=== PATIENT | male | born 1945 | race Caucasian/White ===

== ENCOUNTER → 2016-10-01 | Outpatient (CLI) | payer MEDICARE ==
[2016-10-01 14:24] LABS: Hemoglobin A1C 7.7 % (4.2-6.1)
== END | disposition home or self-care (01) ==
LOC: LABWHC1 07:15
PROVIDERS: ATTEND Family Medicine
DX: R73.9 Hyperglycemia, unspecified (principal)
CPT/HCPCS: 36415; 83036

== ENCOUNTER → 2018-04-23 | Outpatient (CLI) | payer MEDICARE ==
[2018-04-23 11:19] LABS: Basophils % (A) 1 %; Eosinophils # (A) 0.1 k/uL (0-0.7); Eosinophils % (A) 4 %; HCT 45.5 % (39.0-53.0); Lymphocytes # (A) 1.1 k/uL (1.0-4.8); Lymphocytes % (A) 30 %; MCH 30.1 pg (25.0-35.0); MCHC 32.9 g/dL (31.0-37.0); MCV 91.4 fL (80.0-100.0); Mean Platelet Volume 8.6; Monocytes # (A) 0.3 k/uL (0-1.0); Monocytes % (A) 9 %; Neutrophils % (A) 54 %; Platelet Count 129 k/uL (150-450); RBC 4.98 m/uL (4.30-5.90); WBC 3.7 k/uL (3.8-10.6)
[2018-04-23 17:32] LABS: Albumin 4.5 g/dL (3.80-4.90); Albumin/Globulin Ratio 1.96 (1.20-2.10); Anion Gap 8.8 mmol/L (4.00-12.00); Calcium 9.2 mg/dL (8.7-10.3); Carbon Dioxide 28.2 mmol/L (21.6-31.8); Globulin 2.3 g/dL (1.6-3.3); Magnesium 1.9 mg/dL (1.5-2.4); Potassium 4.2 mmol/L (3.5-5.5); Total Bilirubin 0.5 mg/dL (0.3-1.2); Total Protein 6.8 g/dL (6.2-8.2); Uric Acid 4.5 mg/dL (3.7-8.7)
[2018-04-23 18:18] LABS: Hemoglobin A1C 6.6 % (4.0-6.0)
== END ==
LOC: LABWHC1 10:36
PROVIDERS: ATTEND Family Medicine
DX: M19.90 Unspecified osteoarthritis, unspecified site (principal); E11.9 Type 2 diabetes mellitus without complications; R25.2 Cramp and spasm
CPT/HCPCS: 36415; 80053; 83036; 83735; 84550; 85025; 85379

== ENCOUNTER → 2019-02-08 | Outpatient (CLI) | payer MEDICARE ==
--- NOTE | 2019-02-08 09:32 | CTL ---
EXAMINATION TYPE: CT Low Dose Lung DATE OF EXAM ORDERED: 02/08/2019 HISTORY: 73-year-old male Tobacco use and nicotine dependency. Lung cancer screening CT DLP: 137.[address] CTDI: 3.7 mGy Automated exposure control for dose reduction was used. SCREENING VISIT: Baseline COMPARISON: None TECHNIQUE: Low dose computed tomography scan was performed through the chest at 1 mm thick sections and reconstructed images in the coronal and sagittal plane. Additional coronal MIP reconstruction performed. CT DIAGNOSTIC QUALITY: Satisfactory FINDINGS: Heart normal size with trace pericardial thickening/fluid. Scattered coronary vessel calcifications are present. Aorta normal caliber with mild episodic arch calcifications and conventional arch vessel branching anatomy. Borderline to mildly enlarged caliber to the main right and left pulmonary arteries at 2.6 and 2.5 cm, respectively, suggesting underlying pulmonary arterial hypertension. No thoracic lymphadenopathy by CT size criteria. There is a 1.0 x 0.7 cm soft tissue nodule within the subcutaneous adipose of the anterior right mid chest that will need to be correlated clinically. Correlation should be made with physical exam findings and possible targeted ultrasound. Mild diffuse bronchial wall thickening. Mild centrilobular emphysema in the upper lungs. No pleural effusion. 4 mm peripheral left upper lobe pulmonary nodule, axial image 60. A 4 mm thick pleural plaque along the lateral left chest of uncertain clinical significance. This can be reassessed on follow-up. 4 mm groundglass pulmonary nodule at the left base, axial image 226.. Patchy opacity left base along the hemidiaphragm. Small groundglass focus medial right lower lobe, axial image 197 likely infectious/inflammatory focus. Visualized upper abdomen shows no gross abnormality. Bones: Endplate spondylosis lower thoracic spine and scattered degenerative disc disease upper thoracic spine. IMPRESSION: 1. BI-RADS 3, probably benign - 4 mm pleural thickening along the lateral left mid chest questionable clinical significance. Short interval follow-up recommended to reassess. Otherwise, a couple 4 mm pulmonary nodules are considered benign at baseline screening. 2. Patchy left basilar atelectasis versus infiltrate. Correlate for any infectious signs/symptoms. 3. COPD with mild emphysema. 4. Possible underlying pulmonary arterial hypertension. 5. A 1 cm soft tissue nodule within the subcutaneous fat of the anterior right mid chest. RECOMMENDATION: 1. Six-month follow-up low-dose CT chest. 2. Correlate with physical exam findings regarding the 1 cm subcutaneous nodule anterior right mid chest. The finding can be followed clinically. If any growth is noted, targeted ultrasound could be performed. 3. Correlate to exclude pneumonia. 4. Smoking cessation. FOLLOW UP CT CHEST RECOMMENDATION: [address] LUNG RAD: Lung-Rad 3 Probably Benign MTDD
== END ==
LOC: RADCTMAIN 07:21
PROVIDERS: ATTEND Internal Medicine Critical Care Medicine
DX: J43.9 Emphysema, unspecified (principal); R91.8 Other nonspecific abnormal finding of lung field; Z87.891 Personal history of nicotine dependence

== ENCOUNTER → 2019-04-11 | Outpatient (CLI) | payer MEDICARE ==
[2019-04-11 12:00] LABS: Follicle Stimulating Hormone 12.6 mIU/mL; Luteinizing Hormone 3.8 mIU/mL
== END | disposition home or self-care (01) ==
LOC: LABWHC1 07:29
PROVIDERS: ATTEND Urology
DX: E29.1 Testicular hypofunction (principal)
CPT/HCPCS: 36415; 83001; 83002; 84153; 84403

== ENCOUNTER → 2021-02-15 | Outpatient (CLI) | payer MEDICARE ==
--- NOTE | 2021-02-15 11:42 | ECHOF ---
Referral Reason:R07.9 chest pain MEASUREMENTS -------- HEIGHT: 182.9 cm WEIGHT: 105.7 kg BP: RVIDd: 3.4 cm (< 3.3) IVSd: 1.3 cm (0.6 - 1.1) LVIDd: 5.3 cm (3.9 - 5.3) LVPWd: 1.3 cm (0.6 - 1.1) IVSs: 1.9 cm LVIDs: 2.9 cm LVPWs: 1.8 cm LA Diam: 3.9 cm (2.7 - 3.8) LAESV Index (A-L): 25.19 ml/m Ao Diam: 3.5 cm (2.0 - 3.7) AV Cusp: 2.0 cm (1.5 - 2.6) MV EXCURSION: 11.800 mm (> 18.000) MV EF SLOPE: 53 mm/s (70 - 150) EPSS: 0.7 cm MV E Oracio: 0.86 m/s MV DecT: 257 ms MV A Oracio: 1.16 m/s MV E/A Ratio: 0.74 FINDINGS -------- Sinus rhythm. This was a technically adequate study. The left ventricular size is normal. There is mild concentric left ventricular hypertrophy. Overa ll left ventricular systolic function is normal with, an EF between 60 - 65 %. The right ventricle is mildly enlarged. Normal LA size by volume 22+/-6 ml/m2. The right atrium is normal in size. Interatrial and interventricular septum intact. The aortic valve is trileaflet, and appears structurally normal. No aortic stenosis or regurgitation. There is trace mitral regurgitation. The tricuspid valve appears structurally normal. There is no pulmonic regurgitation present. The aortic root size is normal. Normal inferior vena cava with normal inspiratory collapse consistent with estimated right atrial pre ssure of 5 mmHg. There is no pericardial effusion. CONCLUSIONS -------- 1. The left ventricular size is normal. 2. There is mild concentric left ventricular hypertrophy. 3. Overall left ventricular systolic function is normal with, an EF between 60 - 65 %. 4. The right ventricle is mildly enlarged. 5. The aortic valve is trileaflet, and appears structurally normal. No aortic stenosis or regurgitati on. 6. There is trace mitral regurgitation. 7. There is no pericardial effusion. SNUFF BLENDER: Yesy Gibson RDCS
--- NOTE | 2021-02-15 13:18 | P.STRESS ---
- Stress Test Note Stress Test Results/Findings: Exam Performed: stress test Exam Date: 02/15/21 Reason for Exam: CP Height: 6 ft Weight: 104.326 kg Protocol: ETT Stage: 2 Duration of Exercise: 4:35 Resting Heart Rate: 93 Resting Blood Pressure: 135/70 Maximum Achieved Heart Rate: 134 Maximum Achieved Blood Pressure: 198/111 85% PMHR: 125 100% PMHR: 147 METS: 7.1 Technologist Comment: Stress Test Results/Findings: Patient underwent exercise stress EKG with a Usama protocol treadmill stress test. Patient exercised into Stage 2 for a total of 4 minutes and 35 seconds reaching a total of 7.1 METS. Patient's maximum heart rate was 132 which represented 91 % age-predicted maximum heart rate. No symptoms of chest pain or pressure. Stress EKG findings: At baseline patient's EKG showed normal sinus rhythm, left axis deviation, no significant ST or T wave abnormalities. At peak exercise, EKG showed abnormal 1.[address] depressions in the inferior lateral leads with minimal aVR ST elevation. This returned back to baseline after approximately 6 minutes. Conclusions: 1. Abnormal EKG response to exercise with [address] depressions in the inferior and lateral leads concerning for ischemia. May consider stress testing with imaging if clinically indicated. 2. Poor exercise capacity.
== END | disposition home or self-care (01) ==
LOC: RADNMMAIN 09:46
PROVIDERS: ATTEND Family Medicine
DX: R07.9 Chest pain, unspecified (principal)
CPT/HCPCS: 93017; 93306

== ENCOUNTER → 2021-03-04 | Outpatient (CLI) | payer MEDICARE ==
[2021-03-04 23:35] LABS: HCT 41.1 % (39.6-50.0); HGB 13.2 g/dL (13.0-17.0); MCH 28.1 pg (27.0-32.0); MCHC 32.1 g/dL (32.0-37.0); MCV 87.6 fL (80.0-97.0); Mean Platelet Volume 11.9 fL (9.5-12.2); Platelet Count 204 X 10*3/uL (140-440); RBC 4.69 X 10*6/uL (4.40-5.60); RDW 14.2 % (11.5-14.5); WBC 9.72 X 10*3/uL (4.50-10.00)
[2021-03-05 01:16] LABS: African American GFR (CKD) 101.6 (60.0-200.0); Anion Gap 11.4 mmol/L (10.00-18.00); Blood Urea Nitrogen 23.9 mg/dL (9.0-27.0); Carbon Dioxide 26.8 mmol/L (20.0-27.5); Non-African American GFR(CKD) 87.7 (60.0-200.0); Potassium 4.1 mmol/L (3.5-5.5)
== END | disposition home or self-care (01) ==
LOC: LABWHC1 14:51
PROVIDERS: ATTEND Internal Medicine Interventional Cardiology
DX: Z01.812 Encounter for preprocedural laboratory examination (principal); R94.39 Abnormal result of other cardiovascular function study
CPT/HCPCS: 36415; 80051; 82565; 84520; 85027

== ENCOUNTER 2021-03-08 08:47 | Day surgery (SDC) | payer MEDICARE ==
[2021-03-04 16:21] VITALS: BMI 31.3
--- NOTE | 2021-03-05 17:51 | HP ---
HISTORY AND PHYSICAL This is a 75-year-old gentleman with a history of type 2 diabetes, obstructive sleep apnea who uses CPAP, bronchial asthma, previous history of smoking and also hyperlipidemia. He has been having exertional chest pressure and recently had a stress test at [facility] and the stress test was a regular stress test. He walked for only 4 minutes and 35 seconds, had knee discomfort but developed chest pressure, according to the patient. He described this as a pressure across the chest with radiation to the neck. However, on the stress test report there was concern that there were ischemic changes, but it is documented that he did not have symptoms of angina, but patient insists he had chest pressure. Since the stress test, even with mild activity going up a flight of stairs, he is having pressure in the chest suggestive of angina. The patient's cardiac cath which was scheduled for March 08, was initially denied by the insurance company. I spoke to the insurance physician, Dr. Padilla, and explained to him his symptoms as described above, and he immediately authorized the cardiac catheterization. Patient's resting heart rate is in the 60s. He is already on aspirin and Crestor. I will continue the beta rickey, metoprolol tartrate 25 mg daily in addition to aspirin and Crestor and will proceed with cardiac catheterization on Monday. The rationale, risks and benefits related to cardiac cath were carefully explained to the patient. He understands all details and wishes to proceed with the procedure. PAST MEDICAL HISTORY: 1. Type 2 diabetes. 2. Hypertension. 3. Hypercholesterolemia. 4. Type 2 diabetes mellitus. PHYSICAL EXAMINATION: On examination, blood pressure is 140/60, pulse rate is 70 per minute. HEENT unremarkable. Fundus was not examined by me. Neck is supple. There is no JVD. I do not hear a carotid bruit. There is no thyromegaly. Heart exam reveals S1, S2 heard normally. No significant murmurs. Lungs are clear. Abdomen is soft, non-tender. Lower extremities reveal diminished pulses. No edema. Central nervous system is normal. IMPRESSION: 1. Abnormal stress test with symptoms suggestive of angina. 2. Type 2 diabetes mellitus. 3. Hyperlipidemia. 4. Obstructive sleep apnea, wears CPAP. 5. Hypercholesterolemia. 6. Benign hypertension. RECOMMENDATIONS: Coronary angiography; based on findings, intervention. Discussed with the patient at length. He understands all details and wishes to proceed with the procedure. MMODL / IJN: [id number] /
[~2021-03-08 08:47] MED LIST: ALPRAZolam 0.25 MG TAB PO PRN; ALPRAZolam 0.5 MG TAB PO PRN; ASPIRIN 325 MG TAB PO STA; ATORVASTATIN 80 MG TAB PO STA; HEPARIN SODIUM,PORCINE 10,000 UNIT in SODIUM CHLORIDE 0.9% 1,000 ML IRRIGATION PRN; HEPARIN SODIUM,PORCINE 2,500 UNIT in SODIUM CHLORIDE 0.9% 250 ML IRRIGATION PRN; NITROGLYCERIN SL TABS 0.4 MG TAB SUBLINGUAL PRN
[2021-03-08] MEDS: SODIUM CHLORIDE 0.9% 1,000 ML in EMPTY BAG 1 BAG IV SCH ×2 (09:30→15:00)
[2021-03-08 09:36] LABS: Glucose,Whole Blood 172 mg/dL (75-99)
[2021-03-08] MEDS ORDERED: HEPARIN SODIUM 1,000 UN/ML (10ML VL) ONE (10:37)
[2021-03-08] MEDS ORDERED: LIDOCAINE 1% INJ 10MG/ML (20 ML MDV) ONE (10:38)
[2021-03-08] MEDS ORDERED: VERAPAMIL 2.5 MG/ML 2 ML AMP ONE (10:38)
[2021-03-08] MEDS: MIDAZOLAM 2 MG/2 ML VIAL IVP ONE ×2 (10:50→10:57)
[2021-03-08] MEDS ORDERED: LIDOCAINE 1% INJ 10MG/ML (20 ML MDV) SQ ONE (10:57)
[2021-03-08] MEDS: VERAPAMIL SYRINGE (5 MG/10 ML) INTRAARTER ONE ×2 (11:00→12:03)
[2021-03-08] MEDS: HEPARIN SODIUM 1,000 UN/ML (10ML VL) IV ONE ×3 (11:02→11:52)
[2021-03-08] MEDS ORDERED: TIROFIBAN BOLUS 12.5MG/250 ML BAG IV ONE (11:17)
[2021-03-08] MEDS ORDERED: TIROFIBAN 12.5MG-250ML NS 250 ML IV ONE (11:20)
[2021-03-08] MEDS ORDERED: IOPAMIDOL-370 100ML BTL INJ ONE (11:33)
[2021-03-08] MEDS: NITROGLYCERIN 1000MCG/10ML SYRINGE INTRACORON ONE ×2 (11:45→11:59)
[2021-03-08] MEDS ORDERED: TICAGRELOR 90 MG TAB ONE (11:55)
[2021-03-08] MEDS ORDERED: TICAGRELOR 90 MG TAB PO ONE (11:55)
[2021-03-08] MEDS ORDERED: IOPAMIDOL-370 125ML BTL INJ ONE (12:03)
[2021-03-08] MEDS ORDERED: ZOLPIDEM 5 MG TAB PO PRN (12:08)
[2021-03-08] MEDS ORDERED: ATROPINE SULFATE 0.1 MG/ML 10ML SYRINGE IV PRN (12:08)
[2021-03-08] MEDS ORDERED: RX INFO: IV CONTRAST WAS GIVEN 1 EACH MISC MISCELLANE PRN (12:08)
[2021-03-08] MEDS ORDERED: MAG HYDROX/AL HYDROX/SIMETH 30 ML CUP PO PRN (12:08)
[2021-03-08] MEDS ORDERED: TIROFIBAN 12.5MG-250ML NS 250 ML IV SCH (13:00)
[2021-03-08] MEDS: ALBUTEROL NEBULIZED 2.5 MG/3 ML INHALATION SCH ×2 (13:22→20:30)
[2021-03-08] MEDS: SODIUM CHLORIDE 0.9% 1,000 ML IV SCH (14:03)
--- NOTE | 2021-03-08 14:45 | CC ---
CARDIAC CATHETERIZATION REPORT DATE OF SERVICE: 03/08/2021. PROCEDURE: 1. Left heart catheterization and coronary angiography. 2. PTCA and stenting of a long heavily calcified proximal and mid circumflex coronary artery with 2 drug-eluting stents. 3. PTCA and stenting of a heavily calcified mid/proximal RCA with a drug-eluting stent. PERFORMED BY: Dr. Deng Hoang. Moderate conscious sedation time was 71 minutes. Patient was administered Versed. Oxygen saturation, hemodynamics and EKG were monitored closely. CLINICAL INFORMATION: Mr. Kenan Tejada is a 75-year-old gentleman with a history of type 2 diabetes, hypertension, hypercholesterolemia and recent symptoms of exertional chest pressure and shortness of breath with a positive stress test by EKG criteria, and therefore he was advised cardiac cath after due discussion with the insurance company which had initially denied his cardiac cath. Risks, benefits, options, rationale were explained and patient was brought in for the procedure electively. PROCEDURE NOTE: Under local anesthesia and strict aseptic precautions, a 6-Palauan sheath was placed in the right radial artery. Using a JL3.5 and JR4 catheters, I performed coronary angiography and using the same right catheter, I checked LV pressures but did not perform an LV-gram. I noted that he had a significant lesion in the proximal and mid circumflex as well as proximal and mid RCA, heavily calcified vessels and proceeded to perform intervention in the same setting. Following the intervention, the sheath was taken out and TR band applied as per protocol with saturation in the fingers of the right hand of more than 94%. Patient tolerated procedure well without complications. The patient received a total of 6500 units of heparin in the geophysical laboratory chief and also Aggrastat bolus and drip was given. ACT was 242. CARDIAC CATHETERIZATION FINDINGS: RIGHT CORONARY ARTERY: A very dominant vessel, has a heavy calcification the proximal portion with a 40% lesion. At the junction of proximal and middle one third, there is an eccentric 80 and 90% lesion after which the caliber improves and distally bifurcates into a large PDA and PLV, both of which supply a sizable amount of myocardium. The RCA therefore has a 90% proximal/mid lesion in a heavily calcified segment and this is a super dominant vessel. LEFT MAIN CIRCUMFLEX CORONARY ARTERY: Short, patent disease-free vessel that bifurcates into LAD and circumflex. LEFT ANTERIOR DESCENDING CORONARY ARTERY: Good caliber vessel extends along the anterior wall, gives off septal and diagonal branches and the distal one third gives off a large diagonal branch of a 2.25 caliber and then the vessel has diffuse disease towards the apex of about 70%. LAD therefore has diffuse distal disease but the proximal and mid segments are patent. Diagonal branch is free of significant disease. LEFT POSTERIOR CIRCUMFLEX CORONARY ARTERY: Nondominant vessel, heavily calcified from the proximal portion. There was heavy calcification and a 95% stenosis that actually extends into the first obtuse marginal of about 99%. Obtuse marginal is large caliber. Mid circumflex is diffusely diseased and continuation of circumflex distally has mild diffuse disease. Circumflex therefore has a long 95% stenosis with heavy calcification. This is a nondominant vessel. LV-gram was not performed. The left ventricular end-diastolic pressure was 8-9 mmHg without any gradient across aortic valve. RECOMMENDATIONS: I recommended PCI of circumflex and RCA performed in the same setting. PCI PROCEDURE DETAILS: I used a JL3.5 guide catheter to cannulate the left coronary artery. A run- through wire was used to cross the LCX lesion and kept in the distal circumflex. I pre- dilated with a 2.5 caliber NC Trek balloon without much improvement. I then used a 3.0 NC Trek balloon and gave multiple inflations. There was significant recoil and there was a small dissection in the proximal portion of the lesion. I then deployed a 3.25 caliber 23 mm long Xience stent in the distal portions and a 15 mm long 3.25 caliber in the proximal portion. Excellent angiographic result was achieved without complication. There was a remarkable improvement in angiographic appearance and flow. The patient then tolerated procedure well. I then turned my attention to the RCA. The left guide was taken out and the standard right guide was used for the right coronary artery. The same run-through wire was used. A 3.5 caliber NC Trek balloon of 12 mm length was used to pre-dilate the lesion. I then deployed a 4.0 caliber 12 mm Xience stent at 14 atmospheres. Patient had mild chest discomfort and very subtle inferior ST elevation. Excellent angiographic result was achieved without complication. The sheath was taken out and TR band applied as per protocol and saturation the fingers of the right hand was done more than 94%. Excellent angiographic result was achieved. Results were discussed with the patient and family MMODL / IJN: [id number] / MATILDE
[2021-03-08 18:18] LABS: Glucose,Whole Blood 377 mg/dL (75-99)
[2021-03-08] MEDS: glipiZIDE 5 MG TAB PO SCH (19:07)
[2021-03-08] MEDS: TICAGRELOR 90 MG TAB PO SCH (19:07)
[2021-03-08 19:46] VITALS: RESP 16
[2021-03-08 20:19] LABS: Glucose,Whole Blood 284 mg/dL (75-99)
[2021-03-08] MEDS: INSULIN ASPART (NovoLOG) 100 UNIT/ML VIAL SQ SCH (20:30)
[2021-03-08] MEDS ORDERED: ATORVASTATIN 80 MG TAB PO SCH (21:00)
[2021-03-08] MEDS ORDERED: METOPROLOL TARTRATE 25 MG TAB PO SCH (21:00)
[2021-03-09 01:18] LABS: Glucose,Whole Blood 166 mg/dL (75-99)
[2021-03-09] MEDS: SODIUM CHLORIDE 0.9% 1,000 ML in EMPTY BAG 1 BAG IV SCH ×2 (01:19→07:29)
[2021-03-09] MEDS: SODIUM CHLORIDE 0.9% 1,000 ML IV SCH (01:21)
[2021-03-09 06:07] LABS: Basophils % (A) 1 %; Eosinophils # (A) 0.2 k/uL (0-0.7); Eosinophils % (A) 2 %; HCT 41.2 % (39.0-53.0); HGB 13.6 gm/dL (13.0-17.5); Lymphocytes # (A) 1.5 k/uL (1.0-4.8); Lymphocytes % (A) 22 %; MCH 28.4 pg (25.0-35.0); MCV 86.1 fL (80.0-100.0); Mean Platelet Volume 9.1; Monocytes # (A) 0.6 k/uL (0-1.0); Monocytes % (A) 9 %; Neutrophils # (A) 4.4 k/uL (1.3-7.7); Neutrophils % (A) 65 %; Platelet Count 147 k/uL (150-450); RBC 4.78 m/uL (4.30-5.90); RDW 14.1 % (11.5-15.5); WBC 6.8 k/uL (3.8-10.6)
[2021-03-09 06:28] LABS: African American GFR (CKD) >90 (>60 ml/min/1.73 sqM); Anion Gap 3 mmol/L; Blood Urea Nitrogen 15 mg/dL (9-20); Calcium 8.7 mg/dL (8.4-10.2); Carbon Dioxide 31 mmol/L (22-30); Chloride 103 mmol/L (98-107); Glucose 163 mg/dL (74-99); Non-African American GFR(CKD) >90 (>60 ml/min/1.73 sqM); Potassium 4.2 mmol/L (3.5-5.1); Sodium 137 mmol/L (137-145)
[2021-03-09 07:38] LABS: Glucose,Whole Blood 178 mg/dL (75-99)
[2021-03-09] MEDS: ALBUTEROL NEBULIZED 2.5 MG/3 ML INHALATION SCH (08:02)
[2021-03-09 08:30] VITALS: BP 122/59; PULSE 62; TEMP 97.7
[2021-03-09] MEDS ORDERED: ASPIRIN 81 MG PO SCH (09:00)
[2021-03-09] MEDS ORDERED: TAMSULOSIN 0.4 MG CAP.ER.24H PO SCH (09:00)
[2021-03-09] MEDS ORDERED: LOSARTAN 50 MG TAB PO SCH (09:00)
[2021-03-09] MEDS ORDERED: predniSONE 10 MG TAB PO SCH (09:00)
[2021-03-09] MEDS: INSULIN ASPART (NovoLOG) 100 UNIT/ML VIAL SQ SCH (09:02)
[2021-03-09] MEDS: glipiZIDE 5 MG TAB PO SCH (09:08)
[2021-03-09] MEDS: TICAGRELOR 90 MG TAB PO SCH (09:08)
[2021-03-09] MEDS ORDERED: METOPROLOL TARTRATE 25 MG TAB PO SCH (09:15)
--- NOTE | 2021-03-09 11:08 | DS ---
DISCHARGE SUMMARY DATE OF ADMISSION: 03/08/2021. DATE OF DISCHARGE: 03/09/2021 DIAGNOSES: 1. Unstable angina. 2. Hypertension. 3. Type 2 diabetes. 4. Hyperlipidemia. PROCEDURES PERFORMED: 1. Left heart catheterization and coronary angiography. 2. PTCA and stenting of the mid and proximal circumflex. 3. PTCA and stenting of proximal and mid dominant RCA. Drug-eluting stents were used. Mr. Tejada was brought to the hospital electively with an abnormal stress test and symptoms suggestive of angina with a strong risk factor profile. Cardiac cath from right radial approach revealed a 95% stenosis involving the proximal and mid circumflex, which was a long lesion extending into the obtuse marginal and also he had a significant lesion in the mid/proximal RCA which was a superdominant vessel. Both these lesions were stented with drug-eluting stents. Excellent angiographic was achieved. The patient's postprocedure course was uneventful. He will be discharged today and I will see him in the office on March 17 in the morning. Discharge instructions regarding activity, diet and medications were given. Vital signs are stable. No JVD. S1-S2 heard normally. Heart sounds are distant. No significant murmurs. Lungs are clear. Abdomen is soft, nontender. Lower extremity revealed normal pulses. Right radial cath site is clean and dry with a good pulse. EKG and labs were reviewed and are unremarkable. Discharge instructions were given and patient will be seen next week. MMDARIELL / DAHLIA: [id number] /
== END 2021-03-09 09:48 | disposition home or self-care (01) ==
LOC: CATHCVL 08:47 → 6NMEDSUR 12:03 → CATHCVL 03-09 09:48
PROVIDERS: ATTEND Internal Medicine Interventional Cardiology
DX: R94.39 Abnormal result of other cardiovascular function study (principal); I25.10 Atherosclerotic heart disease of native coronary artery without angina pectoris; I25.84 Coronary atherosclerosis due to calcified coronary lesion; E11.9 Type 2 diabetes mellitus without complications; E78.00 Pure hypercholesterolemia, unspecified; I10 Essential (primary) hypertension; G47.33 Obstructive sleep apnea (adult) (pediatric); J45.909 Unspecified asthma, uncomplicated; Z87.891 Personal history of nicotine dependence; Z79.82 Long term (current) use of aspirin; Z79.899 Other long term (current) drug therapy; Z20.822 Contact with and (suspected) exposure to COVID-19
CPT/HCPCS: 93458; 80048; 85025; 87635; C9600 ×2; C1887 ×2; C1894; C1725 ×4; C1769; C1874 ×3; J2250; J2001; J1644; J3246; J7512; Q9967 ×2

== ENCOUNTER 2021-07-22 02:18 | Emergency (ER) | payer MEDICARE ==
--- NOTE | 2021-07-22 03:13 | XR ---
EXAMINATION TYPE: XR chest 1V portable DATE OF EXAM: 07/22/2021 COMPARISON: 01/30/2017 HISTORY: Short of breath TECHNIQUE: Single view FINDINGS: Heart size is normal. There is some coarsening of interstitial markings in the left lung co mpared to the right. No heart failure seen. There are chest leads. There is no pleural effusion. IMPRESSION: Mild increased left-sided pulmonary interstitial density compared to the old exam. No pul monary consolidation or heart failure.
[2021-07-22 03:30] LABS: Basophils % (A) 0 %; Eosinophils # (A) 0.2 k/uL (0-0.7); Eosinophils % (A) 3 %; HCT 39.9 % (39.0-53.0); Lymphocytes # (A) 1.1 k/uL (1.0-4.8); Lymphocytes % (A) 15 %; MCH 28.9 pg (25.0-35.0); MCHC 32.6 g/dL (31.0-37.0); MCV 88.7 fL (80.0-100.0); Mean Platelet Volume 9.3; Monocytes # (A) 0.5 k/uL (0-1.0); Monocytes % (A) 8 %; Neutrophils # (A) 5.2 k/uL (1.3-7.7); Neutrophils % (A) 73 %; Platelet Count 124 k/uL (150-450); RDW 14.1 % (11.5-15.5); WBC 7.1 k/uL (3.8-10.6)
--- NOTE | 2021-07-22 03:34 | ED ---
SOB HPI - General Chief Complaint: Shortness of Breath Stated Complaint: ANGEL Time Seen by Provider: 07/22/21 02:40 Source: patient Mode of arrival: wheelchair Limitations: no limitations - History of Present Illness Initial Comments: This patient is 75-year-old man presenting with cough and shortness of breath. Patient did have some leg swelling and had seen his physician. He states there was concern of DVT but that was checked. He notes that the cough and shortness of breath had worsened over the course tonight so he presents here for further evaluation. MD Complaint: shortness of breath, cough Onset/Timin -: hour(s) Consistency: constant Improves With: nothing Worsens With: nothing Known History Of: COPD Associated Symptoms: cough Treatments Prior to Arrival: none - Related Data Home Medications Medication Instructions Recorded Confirmed Albuterol Inhaler [Ventolin Hfa 2 puff INHALATION RT-TID 03/04/21 03/04/21 Inhaler] Aspirin 81 mg PO DAILY 03/04/21 03/08/21 Metoprolol Tartrate 25 mg PO HS 03/04/21 03/08/21 Rosuvastatin [Crestor] 10 mg PO DAILY 03/04/21 03/08/21 Tamsulosin HCl [Flomax] 0.4 mg PO DAILY 03/04/21 03/08/21 glyBURIDE 2 mg PO BID 03/04/21 03/08/21 metFORMIN HCL 500 mg PO BID 03/04/21 03/08/21 predniSONE 10 mg PO DAILY 03/04/21 03/08/21 Previous Rx's Medication Instructions Recorded Azithromycin [Zithromax Z-pack (6 250 mg PO DIRECTED #6 tab 07/22/21 tabs)] predniSONE 60 mg PO DAILY #30 tab 07/22/21 Allergies Allergy/AdvReac Type Severity Reaction Status Date / Time nickel Allergy Unknown Verified 07/22/21 02:26 Review of Systems ROS Statement: Those systems with pertinent positive or pertinent negative responses have been documented in the HPI. ROS Other: All systems not noted in ROS Statement are negative. Constitutional: Denies: fever, chills, weakness Respiratory: Reports: cough, dyspnea, wheezes. Denies: hemoptysis Cardiovascular: Reports: edema. Denies: chest pain, palpitations, orthopnea, syncope Gastrointestinal: Denies: abdominal pain, vomiting, diarrhea Genitourinary: Denies: dysuria, hematuria Musculoskeletal: Denies: back pain Skin: Denies: rash Neurological: Denies: headache Past Medical History Past Medical History: Asthma, Diabetes Mellitus, Hyperlipidemia, Hypertension History of Any Multi-Drug Resistant Organisms: None Reported Past Surgical History: Heart Catheterization With Stent Past Psychological History: No Psychological Hx Reported Smoking Status: Former smoker Past Alcohol Use History: Occasional Past Drug Use History: None Reported General Exam Limitations: no limitations General appearance: alert, in no apparent distress Head exam: Present: atraumatic, normocephalic Eye exam: Present: normal appearance. Absent: scleral icterus, conjunctival injection Neck exam: Present: normal inspection Respiratory exam: Present: wheezes. Absent: respiratory distress, rales, rhonchi, stridor, accessory muscle use Cardiovascular Exam: Present: normal rhythm, tachycardia, normal heart sounds. Absent: irregular rhythm, systolic murmur, diastolic murmur, rubs, gallop GI/Abdominal exam: Present: soft. Absent: distended, tenderness, guarding, rebound, rigid Extremities exam: Present: normal inspection, normal capillary refill. Absent: pedal edema, calf tenderness Back exam: Present: normal inspection. Absent: CVA tenderness (R), CVA tenderness (L) Neurological exam: Present: alert Skin exam: Present: warm, dry, intact, normal color. Absent: rash Course Vital Signs 07/22/21 07/22/21 07/22/21 02:21 02:40 04:05 Temperature 99.0 F Pulse Rate 114 H 111 H 108 H Respiratory 18 20 Rate Blood Pressure 158/72 175/84 O2 Sat by Pulse 92 L 96 Oximetry 07/22/21 07/22/21 07/22/21 04:15 04:28 05:23 Temperature 99.6 F Pulse Rate 110 H 116 H 114 H Respiratory 20 22 Rate Blood Pressure 165/77 O2 Sat by Pulse 95 96 Oximetry 07/22/21 05:53 Temperature 98.2 F Pulse Rate 118 H Respiratory 22 Rate Blood Pressure 172/76 O2 Sat by Pulse 97 Oximetry Medical Decision Making - Medical Decision Making Patient is 75-year-old man presenting with shortness of breath and cough. Clinically does appear to be element of COPD. Suspects infiltrate as well and will treat with course of antibiotics. Discussed admission with the patient but at this point he would rather try course of outpatient antibiotics and will return if there is no improvement or if there is any worsening. - Lab Data Result diagrams: 07/22/21 03:05 07/22/21 03:05 Lab Results 07/22/21 07/22/21 07/22/21 Range/Units 03:05 03:05 03:05 WBC 7.1 (3.8-10.6) k/uL RBC 4.50 (4.30-5.90) m/uL Hgb 13.0 (13.0-17.5) gm/dL Hct 39.9 (39.0-53.0) % MCV 88.7 (80.0-100.0) fL MCH 28.9 (25.0-35.0) pg MCHC 32.6 (31.0-37.0) g/dL RDW 14.1 (11.5-15.5) % Plt Count 124 L (150-450) k/uL MPV 9.3 Neutrophils % 73 % Lymphocytes % 15 % Monocytes % 8 % Eosinophils % 3 % Basophils % 0 % Neutrophils # 5.2 (1.3-7.7) k/uL Lymphocytes # 1.1 (1.0-4.8) k/uL Monocytes # 0.5 (0-1.0) k/uL Eosinophils # 0.2 (0-0.7) k/uL Basophils # 0.0 (0-0.2) k/uL PT 10.8 (9.0-12.0) sec INR 1.0 (<1.2) APTT 24.1 (22.0-30.0) sec D-Dimer 2.21 H (<0.60) mg/L FEU Sodium 141 (137-145) mmol/L Potassium 3.7 (3.5-5.1) mmol/L Chloride 106 (98-107) mmol/L Carbon Dioxide 26 (22-30) mmol/L Anion Gap 9 mmol/L BUN 16 (9-20) mg/dL Creatinine 0.67 (0.66-1.25) mg/dL Est GFR (CKD-EPI)AfAm >90 (>60 ml/min/1.73 sqM) Est GFR (CKD-EPI)NonAf >90 (>60 ml/min/1.73 sqM) Glucose 149 H (74-99) mg/dL Lactic Ac Sepsis Rflx Plasma Lactic Acid Oswald (0.7-2.0) mmol/L Calcium 8.8 (8.4-10.2) mg/dL Total Bilirubin 0.8 (0.2-1.3) mg/dL AST 22 (17-59) U/L ALT 14 (4-49) U/L Alkaline Phosphatase 72 (38-126) U/L Troponin I (0.000-0.034) ng/mL NT-Pro-B Natriuret Pep pg/mL Total Protein 7.2 (6.3-8.2) g/dL Albumin 4.2 (3.5-5.0) g/dL Coronavirus (PCR) (Not Detectd) Influenza Type A RNA (Not Detectd) Influenza Type B (PCR) (Not Detectd) 07/22/21 07/22/21 07/22/21 Range/Units 03:05 03:05 04:12 WBC (3.8-10.6) k/uL RBC (4.30-5.90) m/uL Hgb (13.0-17.5) gm/dL Hct (39.0-53.0) % MCV (80.0-100.0) fL MCH (25.0-35.0) pg MCHC (31.0-37.0) g/dL RDW (11.5-15.5) % Plt Count (150-450) k/uL MPV Neutrophils % % Lymphocytes % % Monocytes % % Eosinophils % % Basophils % % Neutrophils # (1.3-7.7) k/uL Lymphocytes # (1.0-4.8) k/uL Monocytes # (0-1.0) k/uL Eosinophils # (0-0.7) k/uL Basophils # (0-0.2) k/uL PT (9.0-12.0) sec INR (<1.2) APTT (22.0-30.0) sec D-Dimer (<0.60) mg/L FEU Sodium (137-145) mmol/L Potassium (3.5-5.1) mmol/L Chloride (98-107) mmol/L Carbon Dioxide (22-30) mmol/L Anion Gap mmol/L BUN (9-20) mg/dL Creatinine (0.66-1.25) mg/dL Est GFR (CKD-EPI)AfAm (>60 ml/min/1.73 sqM) Est GFR (CKD-EPI)NonAf (>60 ml/min/1.73 sqM) Glucose (74-99) mg/dL Lactic Ac Sepsis Rflx Plasma Lactic Acid Oswald 2.4 H* (0.7-2.0) mmol/L Calcium (8.4-10.2) mg/dL Total Bilirubin (0.2-1.3) mg/dL AST (17-59) U/L ALT (4-49) U/L Alkaline Phosphatase (38-126) U/L Troponin I <0.012 (0.000-0.034) ng/mL NT-Pro-B Natriuret Pep 133 pg/mL Total Protein (6.3-8.2) g/dL Albumin (3.5-5.0) g/dL Coronavirus (PCR) (Not Detectd) Influenza Type A RNA (Not Detectd) Influenza Type B (PCR) (Not Detectd) 07/22/21 07/22/21 07/22/21 Range/Units 04:12 04:12 05:05 WBC (3.8-10.6) k/uL RBC (4.30-5.90) m/uL Hgb (13.0-17.5) gm/dL Hct (39.0-53.0) % MCV (80.0-100.0) fL MCH (25.0-35.0) pg MCHC (31.0-37.0) g/dL RDW (11.5-15.5) % Plt Count (150-450) k/uL MPV Neutrophils % % Lymphocytes % % Monocytes % % Eosinophils % % Basophils % % Neutrophils # (1.3-7.7) k/uL Lymphocytes # (1.0-4.8) k/uL Monocytes # (0-1.0) k/uL Eosinophils # (0-0.7) k/uL Basophils # (0-0.2) k/uL PT (9.0-12.0) sec INR (<1.2) APTT (22.0-30.0) sec D-Dimer (<0.60) mg/L FEU Sodium (137-145) mmol/L Potassium (3.5-5.1) mmol/L Chloride (98-107) mmol/L Carbon Dioxide (22-30) mmol/L Anion Gap mmol/L BUN (9-20) mg/dL Creatinine (0.66-1.25) mg/dL Est GFR (CKD-EPI)AfAm (>60 ml/min/1.73 sqM) Est GFR (CKD-EPI)NonAf (>60 ml/min/1.73 sqM) Glucose (74-99) mg/dL Lactic Ac Sepsis Rflx Y Plasma Lactic Acid Oswald (0.7-2.0) mmol/L Calcium (8.4-10.2) mg/dL Total Bilirubin (0.2-1.3) mg/dL AST (17-59) U/L ALT (4-49) U/L Alkaline Phosphatase (38-126) U/L Troponin I (0.000-0.034) ng/mL NT-Pro-B Natriuret Pep pg/mL Total Protein (6.3-8.2) g/dL Albumin (3.5-5.0) g/dL Coronavirus (PCR) Not Detected (Not Detectd) Influenza Type A RNA Not Detected (Not Detectd) Influenza Type B (PCR) Not Detected (Not Detectd) - EKG Data -: EKG Interpreted by [facility] EKG shows normal: sinus rhythm, axis (Left axis deviation), intervals (WI interval 214 ms, prolonged consistent with first-degree AV block.), QRS complexes (Incomplete right bundle branch block.) Rate: tachycardia (Rate 105 bpm) Disposition Clinical Impression: Pneumonia, COPD exacerbation Disposition: HOME SELF-CARE Condition: Good Instructions (If sedation given, give patient instructions): Emphysema (DC), Pneumonia (ED) Prescriptions: predniSONE 60 mg PO DAILY #30 tab Azithromycin [Zithromax Z-pack (6 tabs)] 250 mg PO DIRECTED #6 tab Is patient prescribed a controlled substance at d/c from ED?: No Referrals: Hari Neville DO [Primary Care Provider] - 1-2 days
[2021-07-22 03:35] LABS: ALT 14 U/L (4-49); African American GFR (CKD) >90 (>60 ml/min/1.73 sqM); Albumin 4.2 g/dL (3.5-5.0); Anion Gap 9 mmol/L; Blood Urea Nitrogen 16 mg/dL (9-20); Calcium 8.8 mg/dL (8.4-10.2); Carbon Dioxide 26 mmol/L (22-30); Chloride 106 mmol/L (98-107); Glucose 149 mg/dL (74-99); Non-African American GFR(CKD) >90 (>60 ml/min/1.73 sqM); Sodium 141 mmol/L (137-145); Total Bilirubin 0.8 mg/dL (0.2-1.3); Total Protein 7.2 g/dL (6.3-8.2)
[2021-07-22 03:37] LABS: AST 22 U/L (17-59); Alkaline Phosphatase 72 U/L (38-126); Partial Thromboplastin Time 24.1 sec (22.0-30.0); Potassium 3.7 mmol/L (3.5-5.1); Prothrombin Time 10.8 sec (9.0-12.0)
[2021-07-22] MEDS ORDERED: ALBUTEROL NEBULIZED 2.5 MG/3 ML INHALATION STA (03:46)
--- NOTE | 2021-07-22 05:10 | CT ---
EXAMINATION TYPE: CT chest angio for PE DATE OF EXAM: 07/22/2021 COMPARISON: None HISTORY: sob, elevated d dimer CT DLP: 641.7 mGycm Automated exposure control for dose reduction was used. CONTRAST: Performed with IV Contrast, patient injected with 70 mL of Isovue 370. Images obtained from the thoracic inlet to the diaphragm without IV contrast. There are 3-D post proc essed images. There is some mild reticular infiltrate in the left lower lobe. There is subsegmental atelectasis. No pleural effusion. Heart size is normal. There is small pericardial effusion. There are no hilar mass es. There is no mediastinal adenopathy. Thoracic aorta is intact. No aneurysm or dissection. There is no evidence of filling defect in the pulmonary arteries. The thoracic spine is intact. No co mpression fracture. Sternum is intact. The ribs appear intact. IMPRESSION: No evidence of pulmonary embolism. Mild reticular infiltrate and atelectasis at the left lung base. S mall pericardial effusion. No suspicious pulmonary mass.
[2021-07-22 05:24] VITALS: RESP 22
[2021-07-22] MEDS ORDERED: AZITHROMYCIN 500 MG TAB PO STA (05:27)
[2021-07-22] MEDS ORDERED: predniSONE 20 MG TAB PO STA (05:27)
[2021-07-22 05:55] VITALS: BP 172/76; PULSE 118; TEMP 98.2
== END 2021-07-22 06:00 | disposition home or self-care (01) ==
LOC: EC 02:18
DX: J44.1 Chronic obstructive pulmonary disease with (acute) exacerbation (principal); J18.9 Pneumonia, unspecified organism; J45.909 Unspecified asthma, uncomplicated; I10 Essential (primary) hypertension; E11.9 Type 2 diabetes mellitus without complications; Z87.891 Personal history of nicotine dependence; Z20.822 Contact with and (suspected) exposure to COVID-19; Z91.048 Other nonmedicinal substance allergy status
CPT/HCPCS: 36415; 94640; 93005; 85379; 83880; 80053; 83605; 84484; 85025; 85610; 85730; 87502; 87635; 71045; 71275; 99285; J7512; Q9967

== ENCOUNTER 2021-08-07 09:56 | Emergency (ER) | payer MEDICARE ==
[2021-08-07 10:01] VITALS: RESP 20; TEMP 97.7
--- NOTE | 2021-08-07 10:50 | XR ---
Right knee HISTORY: Pain following trauma COMPARISON: None TECHNIQUE: 3 views the right knee were obtained. FINDINGS: There is a total right knee prosthesis. There is no fracture or dislocation. There is no evidence of prosthetic loosening. Soft tissues unrem arkable. IMPRESSION: Total right knee replacement but no evidence of acute trauma.
[2021-08-07] MEDS ORDERED: KETOROLAC 15 MG/ML 1 ML VIAL IM STA (11:03)
--- NOTE | 2021-08-07 11:12 | ED ---
General Adult HPI - General Chief complaint: Extremity Injury, Lower Stated complaint: R Knee Pain Time Seen by Provider: 08/07/21 10:35 Source: patient, family, RN notes reviewed, old records reviewed Mode of arrival: ambulatory Limitations: no limitations - History of Present Illness Initial comments: This is a well-appearing 75-year-old male that presents to the emergency room with right knee pain. Patient states that he tripped on a step landing on his right knee yesterday while working. Today he has increased swelling and pain. He does have history of total knee and he was concerned since he was at work and wanted documentation of the fall in case there was significant injury. Patient has been able to ambulate. He did have fluid drained from his knee by his primary care doctor on . He states that he frequently has fluid drained from both his knees. He does have a history of diabetes, hypertension and asthma. He does have cardiac stents and is on Plavix. -: days(s) (1) Location: right, lower extremity (knee) Radiation: non-radiation Severity scale (1-10): 9 Quality: constant Consistency: constant Worsens with: other (palpation) Associated Symptoms: denies other symptoms Treatments Prior to Arrival: other (tramadol) - Related Data Home Medications Medication Instructions Recorded Confirmed Albuterol Inhaler [Ventolin Hfa 2 puff INHALATION RT-TID 03/04/21 03/04/21 Inhaler] Aspirin 81 mg PO DAILY 03/04/21 03/08/21 Metoprolol Tartrate 25 mg PO HS 03/04/21 03/08/21 Rosuvastatin [Crestor] 10 mg PO DAILY 03/04/21 03/08/21 Tamsulosin HCl [Flomax] 0.4 mg PO DAILY 03/04/21 03/08/21 glyBURIDE 2 mg PO BID 03/04/21 03/08/21 metFORMIN HCL 500 mg PO BID 03/04/21 03/08/21 predniSONE 10 mg PO DAILY 03/04/21 03/08/21 Previous Rx's Medication Instructions Recorded Azithromycin [Zithromax Z-pack (6 250 mg PO DIRECTED #6 tab 07/22/21 tabs)] predniSONE 60 mg PO DAILY #30 tab 07/22/21 Allergies Allergy/AdvReac Type Severity Reaction Status Date / Time nickel Allergy Unknown Verified 08/07/21 10:01 Review of Systems ROS Statement: Those systems with pertinent positive or pertinent negative responses have been documented in the HPI. ROS Other: All systems not noted in ROS Statement are negative. Past Medical History Past Medical History: Asthma, Diabetes Mellitus, Hyperlipidemia, Hypertension History of Any Multi-Drug Resistant Organisms: None Reported Past Surgical History: Heart Catheterization With Stent Past Psychological History: No Psychological Hx Reported Smoking Status: Former smoker Past Alcohol Use History: Occasional Past Drug Use History: None Reported General Exam Limitations: no limitations General appearance: alert, in no apparent distress Head exam: Present: atraumatic Eye exam: Present: normal appearance. Absent: scleral icterus, conjunctival injection Respiratory exam: Absent: respiratory distress, accessory muscle use Cardiovascular Exam: Present: regular rate Right Upper Leg exam: Present: full ROM. Absent: tenderness, swelling Knee exam: Present: full ROM, tenderness, swelling, ecchymosis, full knee extension. Absent: abrasion, dislocation, erythema Lower Leg exam: Present: full ROM. Absent: tenderness, erythema, palpable cord, Homans' sign Ankle exam: Present: normal inspection. Absent: tenderness Neurovascular tendon exam: Present: no vascular compromise. Absent: abnormal cap refill, extremity cold to touch, pallor, foot drop Gait: observed and normal Neurological exam: Present: alert, oriented X3, normal gait Psychiatric exam: Present: normal affect, normal mood Skin exam: Present: warm, dry, normal color. Absent: cyanosis, diaphoretic Course Vital Signs 08/07/21 08/07/21 09:58 11:37 Temperature 97.7 F Pulse Rate 65 78 Respiratory 20 20 Rate Blood Pressure 165/61 132/78 O2 Sat by Pulse 97 97 Oximetry Medical Decision Making - Medical Decision Making X-ray shows no evidence of fracture, knee prosthesis intact. On exam patient is able to fully extend knee and flex knee. He is able to ambulate. He was offered a shot of Toradol for current pain relief. He states he has tramadol and Talwin at home for pain. He was instructed to follow-up with his primary care doctor on Monday. Rest, ice and wear Alvarez wrap. Return to emergency room if any new or concerning symptoms Disposition Clinical Impression: Knee pain, right Disposition: HOME SELF-CARE Condition: Good Instructions (If sedation given, give patient instructions): Knee Pain (ED) Additional Instructions: Rest, ice, wear Alvarez wrap and elevate leg. Take your Ultram as previously prescribed. Follow-up with your primary care doctor or orthopedics on Monday. Return to the emergency room with any new or concerning symptoms. Is patient prescribed a controlled substance at d/c from ED?: No Referrals: Hari Neville DO [Primary Care Provider] - 1-2 days Faisal Garcia MD [Medical Doctor] - 1-2 days Time of Disposition: 11:08
[2021-08-07 11:38] VITALS: BP 132/78; PULSE 78
== END 2021-08-07 11:38 | disposition home or self-care (01) ==
LOC: EC 09:56
DX: M25.561 Pain in right knee (principal); E11.9 Type 2 diabetes mellitus without complications; I10 Essential (primary) hypertension; J45.909 Unspecified asthma, uncomplicated; Z87.891 Personal history of nicotine dependence; Z91.048 Other nonmedicinal substance allergy status
CPT/HCPCS: 73562; 99283; 96372; J1885

== ENCOUNTER 2021-10-23 00:54 | Emergency (ER) | payer MEDICARE ==
[2021-10-23 01:49] LABS: Appearance,Urine Clear (Clear); Bacteria,Urine Rare /hpf; Bilirubin,Urine Negative (Negative); Blood,Urine Large (Negative); Color,Urine Yellow; Glucose,Urine (UA) Negative (Negative); Ketones,Urine Negative (Negative); Leukocyte Esterase,Urine Moderate (Negative); Mucus,Urine Rare /hpf; Nitrite,Urine Negative (Negative); Protein,Urine Trace (Negative); RBC,Urine >182 /hpf (0-5); Specific Gravity,Urine 1.007 (1.001-1.035); Urobilinogen,Urine <2.0 mg/dL (<2.0); WBC,Urine 29 /hpf (0-5)
[2021-10-23 02:13] VITALS: BP 135/61; PULSE 89; RESP 19; TEMP 97.2
--- NOTE | 2021-10-23 02:22 | ED ---
General Adult HPI - General Chief complaint: Urogenital Stated complaint: Urine Retention Source: patient Mode of arrival: ambulatory - History of Present Illness Initial comments: This patient is a 75-year-old man who presents with suspected urinary retention. Patient states that he has history of previous prostate resection with Dr. Edouard, and he had not been having any known urinary difficulties. The patient states that he had dinner this evening, he had 4 alcoholic drinks, and then he went home. The patient states he had sexual intercourse and then went to sleep. He was awakened with intense urge to urinate, but states he was not able to pass much urine. The patient denies fever or chills. No back pain. -: hour(s) Location: abdomen Radiation: non-radiation Quality: other (Pressure) Consistency: constant Improves with: none Worsens with: none Treatments Prior to Arrival: none - Related Data Home Medications Medication Instructions Recorded Confirmed Albuterol Inhaler [Ventolin Hfa 2 puff INHALATION RT-TID 03/04/21 03/04/21 Inhaler] Aspirin 81 mg PO DAILY 03/04/21 03/08/21 Metoprolol Tartrate 25 mg PO HS 03/04/21 03/08/21 Rosuvastatin [Crestor] 10 mg PO DAILY 03/04/21 03/08/21 Tamsulosin HCl [Flomax] 0.4 mg PO DAILY 03/04/21 03/08/21 glyBURIDE 2 mg PO BID 03/04/21 03/08/21 metFORMIN HCL 500 mg PO BID 03/04/21 03/08/21 predniSONE 10 mg PO DAILY 03/04/21 03/08/21 Previous Rx's Medication Instructions Recorded Azithromycin [Zithromax Z-pack (6 250 mg PO DIRECTED #6 tab 07/22/21 tabs)] predniSONE 60 mg PO DAILY #30 tab 07/22/21 Allergies Allergy/AdvReac Type Severity Reaction Status Date / Time nickel Allergy Unknown Verified 08/07/21 10:01 Review of Systems ROS Statement: Those systems with pertinent positive or pertinent negative responses have been documented in the HPI. ROS Other: All systems not noted in ROS Statement are negative. Constitutional: Denies: fever, chills Respiratory: Denies: cough, dyspnea Cardiovascular: Denies: chest pain, palpitations, edema Gastrointestinal: Reports: abdominal pain. Denies: nausea, vomiting, diarrhea, constipation Genitourinary: Reports: as per HPI, hematuria. Denies: dysuria, frequency, testicular pain Musculoskeletal: Denies: back pain Skin: Denies: rash Neurological: Denies: headache Past Medical History Past Medical History: Asthma, Diabetes Mellitus, Hyperlipidemia, Hypertension History of Any Multi-Drug Resistant Organisms: None Reported Past Surgical History: Heart Catheterization With Stent Additional Past Surgical History / Comment(s): bladder surgery Past Psychological History: No Psychological Hx Reported Smoking Status: Former smoker Past Alcohol Use History: Occasional Past Drug Use History: None Reported General Exam General appearance: alert, in no apparent distress Head exam: Present: atraumatic, normocephalic Eye exam: Present: normal appearance. Absent: scleral icterus, conjunctival injection Neck exam: Present: normal inspection Respiratory exam: Present: normal lung sounds bilaterally. Absent: respiratory distress, wheezes, rales, rhonchi, stridor Cardiovascular Exam: Present: regular rate, normal rhythm, systolic murmur. Absent: diastolic murmur, rubs, gallop GI/Abdominal exam: Present: soft. Absent: tenderness, guarding, rebound, rigid, mass exam: Present: other (There is a Lombardi catheter presents draining clear yellow urine.) Extremities exam: Present: normal inspection, normal capillary refill. Absent: pedal edema, calf tenderness Back exam: Present: normal inspection. Absent: CVA tenderness (R), CVA tenderness (L) Neurological exam: Present: alert Skin exam: Present: warm, dry, intact, normal color. Absent: rash Course Vital Signs 10/23/21 00:59 Temperature 97.2 F L Pulse Rate 89 Respiratory 19 Rate Blood Pressure 135/61 O2 Sat by Pulse 99 Oximetry Medical Decision Making - Lab Data Lab Results 10/23/21 Range/Units 01:36 Urine Color Yellow Urine Appearance Clear (Clear) Urine pH 7.0 (5.0-8.0) Ur Specific [place] 1.007 (1.001-1.035) Urine Protein Trace H (Negative) Urine Glucose (UA) Negative (Negative) Urine Ketones Negative (Negative) Urine Blood Large H (Negative) Urine Nitrite Negative (Negative) Urine Bilirubin Negative (Negative) Urine Urobilinogen <2.0 (<2.0) mg/dL Ur Leukocyte Esterase Moderate H (Negative) Urine RBC >182 H (0-5) /hpf Urine WBC 29 H (0-5) /hpf Urine Bacteria Rare H (None) /hpf Urine Mucus Rare H (None) /hpf Disposition Clinical Impression: Urinary retention Disposition: HOME SELF-CARE Condition: Good Instructions (If sedation given, give patient instructions): Urinary Retention in Men (ED) Is patient prescribed a controlled substance at d/c from ED?: No Referrals: Hari Neville DO [Primary Care Provider] - 1-2 days Brian Edouard MD [STAFF PHYSICIAN] - 1-2 days
== END 2021-10-23 02:42 | disposition home or self-care (01) ==
LOC: EC 00:54
DX: R33.9 Retention of urine, unspecified (principal); J45.909 Unspecified asthma, uncomplicated; E11.9 Type 2 diabetes mellitus without complications; E78.5 Hyperlipidemia, unspecified; I10 Essential (primary) hypertension; Z87.891 Personal history of nicotine dependence; Z88.0 Allergy status to penicillin; Z79.51 Long term (current) use of inhaled steroids; Z79.899 Other long term (current) drug therapy
CPT/HCPCS: 81001; 87086; 99283

== ENCOUNTER → 2022-03-01 | Outpatient (CLI) | payer MEDICARE ==
--- NOTE | 2022-03-01 16:43 | MR ---
EXAMINATION TYPE: MR lumbar spine wo con DATE OF EXAM: 03/01/2022 1:03 PM COMPARISON: None. CLINICAL INDICATION:Male, 76 years old with history of M54.16 RADICULOPATHY, LUMBAR REGION TECHNIQUE: Multi planar, multi sequence imaging was performed utilizing: T1-weighted, T2-weighted, a nd turbo inversion recovery imaging of the lumbar spine. IV Contrast: None. FINDINGS: Alignment: The lumbar vertebral bodies have preserved heights and alignment. Cord: The conus medullaris and the distal spinal cord appear unremarkable with regards to their signa l intensity and morphology. Bones/Discs: Multilevel disc degeneration changes with disc space narrowing and osteophyte formation and Modic endplate changes. There R scattered high T1/T2 signal vertebral body probable hemangiomas. Multilevel degenerative disc disease is noted and most pronounced at the L2-L3. Inversion recovery grace ny edema of the adjoining endplates of L2 and L3 noted. Multilevel disc desiccation is present. L1-L2: No evidence of significant spinal canal stenosis. Facet joint arthropathy with mild bilateral neural foraminal stenosis. L2-L3: Disc bulging without significant spinal canal stenosis. Facet joint arthropathy with mild bila teral neural foraminal stenosis. L3-L4: No evidence of significant spinal canal stenosis. Facet joint arthropathy with mild bilateral neural foraminal stenosis. L4-L5: No evidence of significant spinal canal stenosis. Facet joint arthropathy with mild bilateral neural foraminal stenosis. L5-S1: No evidence of significant spinal canal stenosis. Facet joint arthropathy with right and moder ate to severe left neural foraminal stenosis. Other findings: None. IMPRESSION: 1. No definitive evidence of disc herniation or significant spinal canal stenosis. 2. Multilevel disc degeneration with associated osteoarthritic changes worse at L2-L3 and the left n eural foramen at L5-S1 with moderate to severe neural foraminal stenosis.
== END | disposition home or self-care (01) ==
LOC: RADMRIMAIN 12:22
PROVIDERS: ATTEND Family Medicine
DX: M47.27 Other spondylosis with radiculopathy, lumbosacral region (principal); M51.37 Other intervertebral disc degeneration, lumbosacral region; M99.74 Connective tissue and disc stenosis of intervertebral foramina of sacral region
CPT/HCPCS: 72148

== ENCOUNTER → 2022-04-21 | Outpatient (CLI) | payer MEDICARE ==
--- NOTE | 2022-04-22 03:12 | MR ---
EXAMINATION TYPE: MR knee LT wo con DATE OF EXAM: 04/21/2022 COMPARISON: None HISTORY: Braxton knee pain, osteoarthritis Multiplanar multiecho imaging of the left knee performed with no contrast. Exam limited by metal artifact related to knee prosthesis. No fracture seen. No evidence of focal bon e destruction. No evidence of any significant soft tissue fluid collection. There is a mild knee join t effusion. IMPRESSION: Knee prosthesis. Limited exam. Knee joint effusion. No fracture seen.
--- NOTE | 2022-04-22 03:15 | MR ---
EXAMINATION TYPE: MR knee RT wo con DATE OF EXAM: 04/21/2022 COMPARISON: None HISTORY: Braxton knee pain, osteoarthritis Multiplanar multi echo imaging of the right knee performed with no contrast. There is right knee prosthesis. Exam limited by metal artifact. There is a mild knee joint effusion. No focal bone destruction. No evidence of a fracture. No bone edema seen. There is mild subcutaneous edema around the anterior and lateral knee. IMPRESSION: Knee prosthesis. Joint effusion. No fracture.
== END | disposition home or self-care (01) ==
LOC: RADMRIMAIN 07:33
PROVIDERS: ATTEND Family Medicine
DX: M25.462 Effusion, left knee (principal); M25.461 Effusion, right knee; M17.0 Bilateral primary osteoarthritis of knee; Z96.651 Presence of right artificial knee joint

== ENCOUNTER → 2022-09-23 | Outpatient (CLI) | payer MEDICARE ==
--- NOTE | 2022-09-25 12:51 | MR ---
EXAMINATION TYPE: MR pancreas / mrcp wo/w con DATE OF EXAM: 09/23/2022 9:59 AM INDICATION: Patient age:Male; 76 years old; Reason for study: K86.81 EXOCRINE PANCREATIC INSUFFICIENCY. Exocrine pancreatic insufficiency COMPARISON: CT scan abdomen from 07/22/2021 CT PET. TECHNIQUE: Multiplanar multi-sequence imaging was performed without contrast. Post contrast imaging was performed. Post IV contrast subtraction images were also submitted for review.IV Contrast: 10 cc Gadavist Multi planar, T2-weighted imaging with and without fat saturation and chemical shift imaging was perf ormed of the abdomen. Then, heavily T2 weighted imaging (half-Fourier acquisition single-shot turbo s pin-echo) was utilized in order to study the biliary system. Maximum intensity projection images wer e reconstructed from the original data of the biliary tree. 3D images were created on a separate work station. FINDINGS: LOWER CHEST: No gross irregularity. ABDOMEN MRCP: The intrahepatic ducts have a normal appearance. The common bile duct at the level of the meneses creatic head measures 7 mm in size. The common hepatic duct measures 12 mm in size. The pancreatic d uct is normal. The gallbladder appears unremarkable. Liver: Suspected peripheral vascular shunting in the sixth segment of the right hepatic lobe which ut ilizes on delayed imaging series 201 image 176. Pancreas: No evidence of mass. The pancreatic parenchyma is without evidence for active inflammation to suggest pancreatitis. No abnormal postcontrast enhancement. Spleen: Unremarkable. Adrenal glands: Unremarkable. Kidneys: High T2 signal renal cyst measuring up to 5.4 cm on the left and 9 mm on the right. Stomach and Bowel: Scattered colonic diverticula are present. Peritoneum: No evidence of pneumoperitoneum or free fluid. Vasculature: Unremarkable. No aortic aneurysm. Musculoskeletal: The osseous structures appear intact. Lymph Nodes: No gross evidence for lymphadenopathy. Abdominal wall: Unremarkable. IMPRESSION: 1. No evidence for pancreatitis or abnormal finding within the pancreatic parenchyma. No masses. 2. No evidence to suggest ductal stricture, choledocholithiasis. Biliary dilation of the extrahepati c biliary biliary system most pronounced in the common hepatic portion common bile duct. 3. Simple appearing renal cysts. 4. Colonic diverticulosis.
== END | disposition home or self-care (01) ==
LOC: RADMRIMAIN 08:38
PROVIDERS: ATTEND Internal Medicine Gastroenterology
DX: K57.30 Diverticulosis of large intestine without perforation or abscess without bleeding (principal); K86.81 Exocrine pancreatic insufficiency; N28.1 Cyst of kidney, acquired
CPT/HCPCS: 74183; A9585

== ENCOUNTER 2022-12-21 19:52 | Emergency (ER) | payer MEDICARE ==
[2022-12-21 20:33] VITALS: BP 117/70; PULSE 71; RESP 16; TEMP 98
--- NOTE | 2022-12-21 23:43 | XR ---
EXAMINATION TYPE: XR tibia fibula RT DATE OF EXAM: 12/21/2022 CLINICAL HISTORY open wound with redness since recent injury, evaluate for osteomyelitis TECHNIQUE: Two views of the right leg are obtained. COMPARISON: Right knee x-ray August 07, 2021 FINDINGS: There is no acute fracture or dislocation seen in the right tibia or fibula. 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 Positioning is stable and satisfactory. An kle mortise symmetry is preserved. No suspicious bony destruction is evident to suggest acute osteomy elitis. Mild posterior linear calcification proximal leg level is again seen presumed vascular. IMPRESSION: As above.
[2022-12-21 23:54] LABS: African American GFR (CKD) >90 (>60 ml/min/1.73 sqM); Anion Gap 8 mmol/L; Blood Urea Nitrogen 22 mg/dL (9-20); Calcium 9.7 mg/dL (8.4-10.2); Carbon Dioxide 26 mmol/L (22-30); Chloride 107 mmol/L (98-107); Glucose 99 mg/dL (74-99); Non-African American GFR(CKD) >90 (>60 ml/min/1.73 sqM); Potassium 4.6 mmol/L (3.5-5.1); Sodium 141 mmol/L (137-145)
[2022-12-22 00:07] LABS: Basophils % (A) 1 %; Eosinophils # (A) 0.2 k/uL (0-0.7); Eosinophils % (A) 4 %; HCT 43.8 % (39.0-53.0); HGB 14.2 gm/dL (13.0-17.5); Lymphocytes # (A) 1.5 k/uL (1.0-4.8); Lymphocytes % (A) 29 %; MCH 29.2 pg (25.0-35.0); MCHC 32.3 g/dL (31.0-37.0); MCV 90.3 fL (80.0-100.0); Mean Platelet Volume 9.3; Monocytes # (A) 0.5 k/uL (0-1.0); Monocytes % (A) 9 %; Neutrophils # (A) 2.8 k/uL (1.3-7.7); Neutrophils % (A) 54 %; Platelet Count 115 k/uL (150-450); RBC 4.85 m/uL (4.30-5.90); RDW 15.4 % (11.5-15.5); WBC 5.1 k/uL (3.8-10.6)
[2022-12-22] MEDS ORDERED: SULFAMETHOX-TMP 800-160MG 1 EACH TAB PO STA (00:20)
--- NOTE | 2022-12-22 00:22 | ED ---
General Adult HPI - General Chief complaint: Extremity Injury, Lower Stated complaint: right leg infection Time Seen by Provider: 12/21/22 22:43 Source: patient, RN notes reviewed, old records reviewed Mode of arrival: ambulatory Limitations: no limitations - History of Present Illness Initial comments: Patient is a 77-year-old male presents emergency department over concern for right lower extremity infection. Has a history of diabetes. Recently earlier this week struck it on a trailer hitch and has a wound. Has some surrounding erythema that started in the last 1-2 days. Was seen at urgent care and placed on Keflex yesterday but presents emergency department for further evaluation this time. No significant new symptoms. His pain at the site. Tetanus was updated yesterday. Denies any systemic signs of infection. Has no fevers, chills, cough, abdominal pain, nausea, vomiting, chest pain. Denies any shortness of breath. Denies any weakness or numbness in the right lower extremity. His no other acute complaints at this time. Presents for further evaluation. - Related Data Home Medications Medication Instructions Recorded Confirmed Albuterol Inhaler [Ventolin Hfa 2 puff INHALATION RT-TID 03/04/21 03/04/21 Inhaler] Aspirin 81 mg PO DAILY 03/04/21 03/08/21 Metoprolol Tartrate 25 mg PO HS 03/04/21 03/08/21 Rosuvastatin [Crestor] 10 mg PO DAILY 03/04/21 03/08/21 Tamsulosin HCl [Flomax] 0.4 mg PO DAILY 03/04/21 03/08/21 glyBURIDE 2 mg PO BID 03/04/21 03/08/21 metFORMIN HCL 500 mg PO BID 03/04/21 03/08/21 predniSONE 10 mg PO DAILY 03/04/21 03/08/21 Previous Rx's Medication Instructions Recorded Azithromycin [Zithromax Z-pack (6 250 mg PO DIRECTED #6 tab 07/22/21 tabs)] predniSONE 60 mg PO DAILY #30 tab 07/22/21 Sulfamethox-Tmp 800-160Mg [Bactrim 1 tab PO Q12HR 10 Days #20 tab 12/22/22 DS 800-160 mg] Allergies Allergy/AdvReac Type Severity Reaction Status Date / Time nickel Allergy Unknown Verified 08/07/21 10:01 Review of Systems ROS Statement: Those systems with pertinent positive or pertinent negative responses have been documented in the HPI. Review of Systems: CONST: Denies fever EYES: Denies blurry vision ENT: Denies nasal congestion C/V: Denies Chest pain RESP: Denies shortness of breath GI: Denies abdominal pain : Denies dysuria SKIN: Endorses redness and skin wound to the right mendoza. MSK: Denies joint pain. NEURO: Denies headache ROS Other: All systems not noted in ROS Statement are negative. Past Medical History Past Medical History: Asthma, Diabetes Mellitus, Hyperlipidemia, Hypertension History of Any Multi-Drug Resistant Organisms: None Reported Past Surgical History: Heart Catheterization With Stent Additional Past Surgical History / Comment(s): bladder surgery Past Psychological History: No Psychological Hx Reported Smoking Status: Former smoker Past Alcohol Use History: Occasional Past Drug Use History: None Reported General Exam - General Exam Comments Initial Comments: General: Appears in no acute distress. HEAD: Normal with no signs of head trauma. EYES: PERRLA, EOMI, conjunctiva normal, no discharge. ENT: Hearing grossly intact, normal oropharynx. RESPIRATORY: Clear breath sounds bilaterally. No wheezes, rales, or rhonchi. C/V: Regular rate and rhythm. S1 and S2 auscultated, no edema, peripheral pulses 2+ and intact throughout ABD: Abd is soft, nontender, nondistended EXT: Normal range of motion, no obvious deformity SKIN: Patient has a small approximately quarter size skin wound with bleeding controlled over the anterior right mendoza with surrounding erythema. No fluctuance. No induration. No purulent drainage. NEURO: Alert and oriented 4. Limitations: no limitations Course Vital Signs 12/21/22 20:29 Temperature 98.0 F Pulse Rate 71 Respiratory 16 Rate Blood Pressure 117/70 O2 Sat by Pulse 97 Oximetry Medical Decision Making - Medical Decision Making Was pt. sent in by a medical professional or institution (, PA, [employer]GE[employer], urgent care, hospital, or intermediate...) When possible be specific @ -No Did you speak to anyone other than the patient for history (EMS, parent, family, police, friend...)? What history was obtained from this source @ -No Did you review nursing and triage notes (agree or disagree)? Why? @ -I reviewed and agree with nursing and triage notes Were old charts reviewed (outside hosp., previous admission, EMS record, old EKG, old radiological studies, urgent care reports/EKG's, intermediate records)? Report findings @ -No old charts were reviewed Differential Diagnosis (chest pain, altered mental status, abdominal pain women, abdominal pain men, vaginal bleeding, weakness, fever, dyspnea, syncope, headache, dizziness, GI bleed, back pain, seizure, CVA, palpatations, mental he alth, musculoskeletal)? @ -Cellulitis, skin wound, osteomyelitis, abscess. This list is not all inclusive. EKG interpreted by me (3pts min.). @ -None done X-rays interpreted by me (1pt min.). @ -Right lower extremity x-ray negative for any evidence of osteomyelitis. CT interpreted by me (1pt min.). @ -None done U/S interpreted by me (1pt. min.). @ -None done What testing was considered but not performed or refused? (CT, X-rays, U/S, labs)? Why? @ -None What meds were considered but not given or refused? Why? @ -I offered analgesic medications which were declined. Did you discuss the management of the patient with other professionals (professionals i.e. , PA, [employer], lab, RT, psych nurse, neonatal social worker, chemical engineering intern, teacher, home lending officer, case worker)? Give summary @ -No Was smoking cessation discussed for >3mins.? @ -No Was critical care preformed (if so, how long)? @ -No Were there social determinants of health that impacted care today? How? (Homelessness, low income, unemployed, alcoholism, drug addiction, transportation, low edu. Level, literacy, decrease access to med. care, residential, rehab)? @ -No Was there de-escalation of care discussed even if they declined (Discuss DNR or withdrawal of care, Hospice)? DNR status @ -No What co-morbidities impacted this encounter? (DM, HTN, Smoking, COPD, CAD, Cancer, CVA, ARF, Chemo, Hep., AIDS, mental health diagnosis, sleep apnea, morbid obesity)? @ -None Was patient admitted / discharged? Hospital course, mention meds given and route, prescriptions, significant lab abnormalities, going to OR and other pertinent info. @ -Based on the patient's presentation and exam, I considered for possible receipted pictured over the right lower extremity. Patient presents today because he states only of anabolic steroid is not improved it. Due to his history of diabetes I did recommend we obtain basic labs as well as x-ray to e valuate for osteo-myelitis. He was in agreement this plan. I offered analgesic medications which were declined. Patient is already on Keflex. Imaging unremarkable. Labs within acceptable limits. I discussed results of the patient. I believe it is safe for discharge home at this time. Patient is primarily concerned for MRSA infection and therefore I will add Bactrim to his antibiotic regimen. He was in agreement this plan. Strict return precautions discussed. I will provide the patient with a prescription for Bactrim. I instructed the patient to follow up with their PCP in the next 1-3 days. I explained that the patient should return to the emergency department if they experience any worsening symptoms. Strict return precautions were discussed with the patient. The patient expressed understanding of these instructions. I answered all questions that the patient had. The patient was discharged home in good condition with their prescriptions and follow up information. Undiagnosed new problem with uncertain prognosis? @ -No Drug Therapy requiring intensive monitoring for toxicity (Heparin, Nitro, Insulin, Cardizem)? @ -No Were any procedures done? @ -No Diagnosis/symptom? @ -Cellulitis Acute, or Chronic, or Acute on Chronic? @ -Acute Uncomplicated (without systemic symptoms) or Complicated (systemic symptoms)? @ -Uncomplicated Side effects of treatment? @ -No Exacerbation, Progression, or Severe Exacerbation? @ -No Poses a threat to life or bodily function? How? (Chest pain, USA, ID, pneumonia, PE, COPD, DKA, ARF, appy, cholecystitis, CVA, Diverticulitis, Homicidal, Suicidal, threat to staff... and all critical care pts) @ -Possibly if not treated. - Lab Data Result diagrams: 12/21/22 23:16 12/21/22 23:16 Lab Results 12/21/22 12/21/22 Range/Units 23:16 23:16 WBC 5.1 (3.8-10.6) k/uL RBC 4.85 (4.30-5.90) m/uL Hgb 14.2 (13.0-17.5) gm/dL Hct 43.8 (39.0-53.0) % MCV 90.3 (80.0-100.0) fL MCH 29.2 (25.0-35.0) pg MCHC 32.3 (31.0-37.0) g/dL RDW 15.4 (11.5-15.5) % Plt Count 115 L (150-450) k/uL MPV 9.3 Neutrophils % 54 % Lymphocytes % 29 % Monocytes % 9 % Eosinophils % 4 % Basophils % 1 % Neutrophils # 2.8 (1.3-7.7) k/uL Lymphocytes # 1.5 (1.0-4.8) k/uL Monocytes # 0.5 (0-1.0) k/uL Eosinophils # 0.2 (0-0.7) k/uL Basophils # 0.0 (0-0.2) k/uL Sodium 141 (137-145) mmol/L Potassium 4.6 (3.5-5.1) mmol/L Chloride 107 (98-107) mmol/L Carbon Dioxide 26 (22-30) mmol/L Anion Gap 8 mmol/L BUN 22 H (9-20) mg/dL Creatinine 0.64 L (0.66-1.25) mg/dL Est GFR (CKD-EPI)AfAm >90 (>60 ml/min/1.73 sqM) Est GFR (CKD-EPI)NonAf >90 (>60 ml/min/1.73 sqM) Glucose 99 (74-99) mg/dL Calcium 9.7 (8.4-10.2) mg/dL Disposition Clinical Impression: Cellulitis Disposition: HOME SELF-CARE Condition: Good Instructions (If sedation given, give patient instructions): Cellulitis (ED) Prescriptions: Sulfamethox-Tmp 800-160Mg [Bactrim DS 800-160 mg] 1 tab PO Q12HR 10 Days #20 tab Is patient prescribed a controlled substance at d/c from ED?: No Referrals: Hari Neville DO [Primary Care Provider] - 1-2 days Time of Disposition: 00:12
== END 2022-12-22 00:35 | disposition home or self-care (01) ==
LOC: EC 19:52
DX: L03.115 Cellulitis of right lower limb (principal); E11.9 Type 2 diabetes mellitus without complications; I10 Essential (primary) hypertension; J45.909 Unspecified asthma, uncomplicated; E78.5 Hyperlipidemia, unspecified; Z79.84 Long term (current) use of oral hypoglycemic drugs; Z79.82 Long term (current) use of aspirin; Z79.52 Long term (current) use of systemic steroids; Z79.899 Other long term (current) drug therapy; Z91.09 Other allergy status, other than to drugs and biological substances; Z87.891 Personal history of nicotine dependence
CPT/HCPCS: 36415; 80048; 85025; 99283

== ENCOUNTER 2023-03-22 13:28 | Emergency (ER) | payer MEDICARE ==
--- NOTE | 2023-03-22 14:11 | ED ---
General Adult HPI - General Source: patient, RN notes reviewed Mode of arrival: ambulatory Limitations: no limitations <Che Ya - Last Filed: 03/22/23 14:10> <Cammy Amaya - Last Filed: 03/23/23 02:34> - General Chief complaint: Upper Respiratory Infection Stated complaint: ANGEL,Cough,Headache-History of Asthma Time Seen by Provider: 03/22/23 14:10 - History of Present Illness Initial comments: 77 year old male with a past medical history significant for asthma presents to the emergency department with a chief complaint of cough. He is complaining of accompanying symptoms of headache. (Che Ya) 77-year-old male presents to the emergency department for evaluation of cough, congestion, headache. Symptoms started yesterday. Patient has a history of asthma and states that typically when he gets sick in the winter he recalls his auction clerk who prescribes him steroids. He states that he attempted to call him today but he was out of the office prompting him to come to the emergency department. He reports that his breathing is slightly more short-winded than it typically is. He utilizes albuterol at home. (Cammy Amaya) - Related Data Home Medications Medication Instructions Recorded Confirmed Albuterol Inhaler [Ventolin Hfa 2 puff INHALATION RT-TID 03/04/21 03/04/21 Inhaler] Aspirin 81 mg PO DAILY 03/04/21 03/08/21 Metoprolol Tartrate 25 mg PO HS 03/04/21 03/08/21 Rosuvastatin [Crestor] 10 mg PO DAILY 03/04/21 03/08/21 Tamsulosin HCl [Flomax] 0.4 mg PO DAILY 03/04/21 03/08/21 glyBURIDE 2 mg PO BID 03/04/21 03/08/21 metFORMIN HCL 500 mg PO BID 03/04/21 03/08/21 predniSONE 10 mg PO DAILY 03/04/21 03/08/21 Previous Rx's Medication Instructions Recorded Azithromycin [Zithromax Z-pack (6 250 mg PO DIRECTED #6 tab 07/22/21 tabs)] predniSONE 60 mg PO DAILY #30 tab 07/22/21 Sulfamethox-Tmp 800-160Mg [Bactrim 1 tab PO Q12HR 10 Days #20 tab 12/22/22 DS 800-160 mg] Oseltamivir [Tamiflu] 75 mg PO Q12HR #10 cap 03/22/23 Allergies Allergy/AdvReac Type Severity Reaction Status Date / Time nickel Allergy Unknown Verified 03/22/23 13:46 Review of Systems ROS Other: All systems not noted in ROS Statement are negative. <Che Ya - Last Filed: 03/22/23 14:10> ROS Other: All systems not noted in ROS Statement are negative. <Cammy Amaya - Last Filed: 03/23/23 02:34> ROS Statement: Those systems with pertinent positive or pertinent negative responses have been documented in the HPI. Past Medical History Past Medical History: Asthma, Diabetes Mellitus, Hyperlipidemia, Hypertension History of Any Multi-Drug Resistant Organisms: None Reported Past Surgical History: Heart Catheterization With Stent Additional Past Surgical History / Comment(s): bladder surgery Past Psychological History: No Psychological Hx Reported Smoking Status: Former smoker Past Alcohol Use History: Occasional Past Drug Use History: None Reported <Che Ya - Last Filed: 03/22/23 14:10> General Exam Limitations: no limitations <FeltonChe - Last Filed: 03/22/23 14:10> Limitations: no limitations General appearance: alert, in no apparent distress Head exam: Present: atraumatic, normocephalic, normal inspection Eye exam: Present: normal appearance, PERRL, EOMI. Absent: scleral icterus, conjunctival injection, periorbital swelling ENT exam: Present: normal exam, mucous membranes moist Neck exam: Present: normal inspection. Absent: tenderness, meningismus, lymphadenopathy Respiratory exam: Present: normal lung sounds bilaterally. Absent: respiratory distress, wheezes, rales, rhonchi, stridor Cardiovascular Exam: Present: regular rate, normal rhythm, normal heart sounds. Absent: systolic murmur, diastolic murmur, rubs, gallop, clicks GI/Abdominal exam: Present: soft, normal bowel sounds. Absent: distended, tenderness, guarding, rebound, rigid Extremities exam: Present: normal inspection, full ROM, normal capillary refill. Absent: tenderness, pedal edema, joint swelling, calf tenderness Back exam: Present: normal inspection Neurological exam: Present: alert, oriented X3, CN II-XII intact Psychiatric exam: Present: normal affect, normal mood Skin exam: Present: warm, dry, intact, normal color. Absent: rash <Cammy Amaya - Last Filed: 03/23/23 02:34> - General Exam Comments Initial Comments: Visual Physical Exam Vital signs reviewed General: Well-appearing, nontoxic, no acute distress. Head: Normocephalic, atraumatic Eyes: PERRLA, EOMI ENT: Airway patent Chest: Nonlabored breathing Skin: No visual rash, normal skin tone Neuro: Alert and oriented 3 Musculoskeletal: No gross abnormalities (Che Ya) Course Vital Signs 03/22/23 03/22/23 03/22/23 13:43 16:13 18:20 Temperature 98.5 F 98.4 F Pulse Rate 100 105 H Respiratory 20 20 18 Rate Blood Pressure 135/63 127/57 O2 Sat by Pulse 91 L 95 94 L Oximetry 03/22/23 19:03 Temperature 99.9 F H Pulse Rate 109 H Respiratory 20 Rate Blood Pressure 139/73 O2 Sat by Pulse 94 L Oximetry Medical Decision Making <Che Ya - Last Filed: 03/22/23 14:10> - Lab Data Result diagrams: 03/22/23 13:51 03/22/23 13:51 <Cammy Amaya - Last Filed: 03/23/23 02:34> - Medical Decision Making I performed the quick note portion of this exam, verbal signature Che Ya PA-C (Che Ya) Was pt. sent in by a medical professional or institution ([facility], [employer], urgent care, hospital, or senior living...) When possible be specific @ -No Did you speak to anyone other than the patient for history (EMS, parent, family, police, friend...)? What history was obtained from this source @ -No Did you review nursing and triage notes (agree or disagree)? Why? @ -I reviewed and agree with nursing and triage notes Were old charts reviewed (outside hosp., previous admission, EMS record, old EKG, old radiological studies, urgent care reports/EKG's, senior living records)? Report findings @ -No old charts were reviewed Differential Diagnosis (chest pain, altered mental status, abdominal pain women, abdominal pain men, vaginal bleeding, weakness, fever, dyspnea, syncope, headache, dizziness, GI bleed, back pain, seizure, CVA, palpatations, mental health, musculoskeletal)? @ -Covid, influenza, RSV, pneumonia, this list is not all-inclusive EKG interpreted by me (3pts min.). @ -None X-rays interpreted by me (1pt min.). @ -Chest x-ray shows no acute infiltrate CT interpreted by me (1pt min.). @ -None done U/S interpreted by me (1pt. min.). @ -None done What testing was considered but not performed or refused? (CT, X-rays, U/S, labs)? Why? @ -None What meds were considered but not given or refused? Why? @ -None Did you discuss the management of the patient with other professionals (barak cui i.eVioletta Wilkinson, PA, FORENS[employer] STRUCTURAL ENGINEER, lab, RT, psych nurse, high school social science teacher, insolvency practitioner, teacher, disability insurance hearing officer, case filler)? Give summary @ -No Was smoking cessation discussed for >3mins.? @ -No Was critical care preformed (if so, how long)? @ -No Were there social determinants of health that impacted care today? How? (Homelessness, low income, unemployed, alcoholism, drug addiction, transportatio n, low edu. Level, literacy, decrease access to med. care, penitentiary, rehab)? @ -No Was there de-escalation of care discussed even if they declined (Discuss DNR or withdrawal of care, Hospice)? DNR status @ -No What co-morbidities impacted this encounter? (DM, HTN, Smoking, COPD, CAD, Cancer, CVA, ARF, Chemo, Hep., AIDS, mental health diagnosis, sleep apnea, morbid obesity)? @ -None Was patient admitted / discharged? Hospital course, mention meds given and route, prescriptions, significant lab abnormalities, going to OR and other pertinent info. @ -Discharged. Patient presented to the emergency department for evaluation of cough, congestion, muscle aches. Patient does have a history of asthma and states that he feels slightly more short of breath than he typically does. This x-ray shows no acute process Laboratory studies obtainedCBC essentially unremarkable, CMP unremarkable; Covid, RSV negative patient tested positive for influenza A. Patient was placed on 2 L of oxygen. He does not typically use oxygen at home. Patient was given a breathing treatment in the emergency department and a dose of Solu-Medrol. Patient was weaned off the oxygen and was stable at 95%. Patient wanted to be discharged home. Prescription sent to patient's pharmacy for Tamiflu. Patient stable at time of discharge. Case discussed with Dr. Duarte Undiagnosed new problem with uncertain prognosis? @ -No Drug Therapy requiring intensive monitoring for toxicity (Heparin, Nitro, Insulin, Cardizem)? @ -No Were any procedures done? @ -No Diagnosis/symptom? @ -influenza A Acute, or Chronic, or Acute on Chronic? @ -acute Uncomplicated (without systemic symptoms) or Complicated (systemic symptoms)? @ -uncomplicated Side effects of treatment? @ -No Exacerbation, Progression, or Severe Exacerbation? @ -No Poses a threat to life or bodily function? How? (Chest pain, USA, MT, pneumonia, PE, COPD, DKA, ARF, appy, cholecystitis, CVA, Diverticulitis, Homicidal, Suicidal, threat to staff... and all critical care pts) @ -No (Cammy Amaya) - Lab Data Lab Results 03/22/23 03/22/23 03/22/23 Range/Units 13:51 13:51 13:51 WBC 6.5 (3.8-10.6) k/uL RBC 5.24 (4.30-5.90) m/uL Hgb 15.6 (13.0-17.5) gm/dL Hct 47.2 (39.0-53.0) % MCV 90.1 (80.0-100.0) fL MCH 29.7 (25.0-35.0) pg MCHC 32.9 (31.0-37.0) g/dL RDW 14.1 (11.5-15.5) % Plt Count 106 L (150-450) k/uL MPV 9.2 Neutrophils % 89 % Lymphocytes % 4 % Monocytes % 4 % Eosinophils % 1 % Basophils % 0 % Neutrophils # 5.8 (1.3-7.7) k/uL Lymphocytes # 0.3 L (1.0-4.8) k/uL Monocytes # 0.3 (0-1.0) k/uL Eosinophils # 0.1 (0-0.7) k/uL Basophils # 0.0 (0-0.2) k/uL PT 10.4 (10.0-12.5) sec INR 0.9 (<1.2) APTT 22.9 (22.0-30.0) sec Sodium 139 (137-145) mmol/L Potassium 3.9 (3.5-5.1) mmol/L Chloride 102 (98-107) mmol/L Carbon Dioxide 24 (22-30) mmol/L Anion Gap 13 mmol/L BUN 19 (9-20) mg/dL Creatinine 0.65 L (0.66-1.25) mg/dL Est GFR (CKD-EPI)AfAm >90 (>60 ml/min/1.73 sqM) Est GFR (CKD-EPI)NonAf >90 (>60 ml/min/1.73 sqM) Glucose 155 H (74-99) mg/dL Plasma Lactic Acid Oswald (0.7-2.0) mmol/L Calcium 9.5 (8.4-10.2) mg/dL Total Bilirubin 0.6 (0.2-1.3) mg/dL AST 24 (17-59) U/L ALT 20 (4-49) U/L Alkaline Phosphatase 103 (38-126) U/L Total Protein 7.7 (6.3-8.2) g/dL Albumin 4.7 (3.5-5.0) g/dL Influenza Type A (PCR) (Not Detectd) Influenza Type B (PCR) (Not Detectd) RSV (PCR) (Not Detectd) SARS-CoV-2 (PCR) (Not Detectd) 03/22/23 03/22/23 Range/Units 13:51 13:52 WBC (3.8-10.6) k/uL RBC (4.30-5.90) m/uL Hgb (13.0-17.5) gm/dL Hct (39.0-53.0) % MCV (80.0-100.0) fL MCH (25.0-35.0) pg MCHC (31.0-37.0) g/dL RDW (11.5-15.5) % Plt Count (150-450) k/uL MPV Neutrophils % % Lymphocytes % % Monocytes % % Eosinophils % % Basophils % % Neutrophils # (1.3-7.7) k/uL Lymphocytes # (1.0-4.8) k/uL Monocytes # (0-1.0) k/uL Eosinophils # (0-0.7) k/uL Basophils # (0-0.2) k/uL PT (10.0-12.5) sec INR (<1.2) APTT (22.0-30.0) sec Sodium (137-145) mmol/L Potassium (3.5-5.1) mmol/L Chloride (98-107) mmol/L Carbon Dioxide (22-30) mmol/L Anion Gap mmol/L BUN (9-20) mg/dL Creatinine (0.66-1.25) mg/dL Est GFR (CKD-EPI)AfAm (>60 ml/min/1.73 sqM) Est GFR (CKD-EPI)NonAf (>60 ml/min/1.73 sqM) Glucose (74-99) mg/dL Plasma Lactic Acid Oswald 1.4 (0.7-2.0) mmol/L Calcium (8.4-10.2) mg/dL Total Bilirubin (0.2-1.3) mg/dL AST (17-59) U/L ALT (4-49) U/L Alkaline Phosphatase (38-126) U/L Total Protein (6.3-8.2) g/dL Albumin (3.5-5.0) g/dL Influenza Type A (PCR) Detected A (Not Detectd) Influenza Type B (PCR) Not Detected (Not Detectd) RSV (PCR) Not Detected (Not Detectd) SARS-CoV-2 (PCR) Not Detected (Not Detectd) Disposition <Che Ya - Last Filed: 03/22/23 14:10> Is patient prescribed a controlled substance at d/c from ED?: No <Cammy Amaya - Last Filed: 03/23/23 02:34> Clinical Impression: Influenza A Disposition: HOME SELF-CARE Condition: Stable Instructions (If sedation given, give patient instructions): Influenza (ED) Additional Instructions: Please follow up with your primary care provider and auction clerk. sheet metal worker supervisor m edication and take to completion. Return to the emergency department for new or worsening symptoms. Prescriptions: Oseltamivir [Tamiflu] 75 mg PO Q12HR #10 cap Referrals: Hari Neville DO [Primary Care Provider] - 1-2 days
--- NOTE | 2023-03-22 14:32 | XR ---
EXAMINATION TYPE: XR chest 2V DATE OF EXAM: 03/22/2023 COMPARISON: 07/22/2021 HISTORY: Shortness of breath TECHNIQUE: Frontal and lateral views of the chest are obtained. FINDINGS: Scattered senescent parenchymal changes noted. Hyperinflation compatible with COPD. No evidence for infiltrate. No evidence for atelectasis. Heart size is stable. Mediastinal structures are stable and grossly unremarkable. No evidence for hilar prominence. Degenerative changes dorsal spine. IMPRESSION: 1. No evidence for acute pulmonary disease.
[2023-03-22 14:38] LABS: Basophils % (A) 0 %; Eosinophils # (A) 0.1 k/uL (0-0.7); Eosinophils % (A) 1 %; HCT 47.2 % (39.0-53.0); HGB 15.6 gm/dL (13.0-17.5); Lymphocytes # (A) 0.3 k/uL (1.0-4.8); Lymphocytes % (A) 4 %; MCH 29.7 pg (25.0-35.0); MCHC 32.9 g/dL (31.0-37.0); MCV 90.1 fL (80.0-100.0); Mean Platelet Volume 9.2; Monocytes # (A) 0.3 k/uL (0-1.0); Monocytes % (A) 4 %; Neutrophils # (A) 5.8 k/uL (1.3-7.7); Neutrophils % (A) 89 %; Platelet Count 106 k/uL (150-450); RBC 5.24 m/uL (4.30-5.90); RDW 14.1 % (11.5-15.5); WBC 6.5 k/uL (3.8-10.6)
[2023-03-22 14:49] LABS: ALT 20 U/L (4-49); AST 24 U/L (17-59); African American GFR (CKD) >90 (>60 ml/min/1.73 sqM); Albumin 4.7 g/dL (3.5-5.0); Alkaline Phosphatase 103 U/L (38-126); Anion Gap 13 mmol/L; Blood Urea Nitrogen 19 mg/dL (9-20); Calcium 9.5 mg/dL (8.4-10.2); Carbon Dioxide 24 mmol/L (22-30); Chloride 102 mmol/L (98-107); Glucose 155 mg/dL (74-99); INR 0.9 (<1.2); Non-African American GFR(CKD) >90 (>60 ml/min/1.73 sqM); Partial Thromboplastin Time 22.9 sec (22.0-30.0); Potassium 3.9 mmol/L (3.5-5.1); Prothrombin Time 10.4 sec (10.0-12.5); Sodium 139 mmol/L (137-145); Total Bilirubin 0.6 mg/dL (0.2-1.3); Total Protein 7.7 g/dL (6.3-8.2)
[2023-03-22] MEDS ORDERED: methylPREDNISolone SOD SUCCI 125 MG/2 ML VIAL IV STA (16:50)
[2023-03-22] MEDS ORDERED: MORPHINE SULFATE 4 MG/ML SYRINGE IVP STA (16:50)
[2023-03-22] MEDS ORDERED: IPRATROPIUM-ALBUTEROL 3 ML NEB INHALATION STA (16:50)
[2023-03-22] MEDS ORDERED: ALBUTEROL HFA INHALER INHALATION STA (17:11)
[2023-03-22] MEDS ORDERED: TIOTROPIUM 2.5 MCG INHALER INHALATION STA (17:11)
[2023-03-22 19:12] VITALS: BP 139/73; PULSE 109; RESP 20; TEMP 99.9
== END 2023-03-22 19:45 | disposition home or self-care (01) ==
LOC: EC 13:28
DX: J10.1 Influenza due to other identified influenza virus with other respiratory manifestations (principal); I44.0 Atrioventricular block, first degree; J45.909 Unspecified asthma, uncomplicated; E11.9 Type 2 diabetes mellitus without complications; I10 Essential (primary) hypertension; E78.5 Hyperlipidemia, unspecified; Z87.891 Personal history of nicotine dependence; Z79.82 Long term (current) use of aspirin; Z79.899 Other long term (current) drug therapy; Z79.84 Long term (current) use of oral hypoglycemic drugs; Z88.8 Allergy status to other drugs, medicaments and biological substances; Z20.822 Contact with and (suspected) exposure to COVID-19
CPT/HCPCS: 36415; 94640; 93005; 80053; 83605; 85025; 85610; 85730; 87636; 71046; 99285; 96374; 96375; J2270; J2930